=== PATIENT | male | born 2000 | race Caucasian/White ===

== ENCOUNTER 2024-09-27 14:33 | Emergency (ER) | payer OTHER ==
[~2024-09-27] VITALS: Ht 190.5 cm; Wt 90.1 kg
[2024-09-27] MEDS: IBUPROFEN 600 MG TAB PO ONE (17:45)
[2024-09-27 18:40] VITALS: BP 143/85; TEMP 96.3; O2SAT 100
== END 2024-09-27 18:44 | disposition home or self-care (01) ==
LOC: M ED 14:33
DX: M25.572 Pain in left ankle and joints of left foot (principal)

== ENCOUNTER 2025-01-03 03:44 | Emergency (ER) | payer OTHER ==
[~2025-01-03] VITALS: Ht 190.5 cm; Wt 93.3 kg
[2025-01-03] MEDS: IBUPROFEN 600 MG TAB PO ONE (06:49)
[2025-01-03 08:17] VITALS: BP 95/50; TEMP 97.3; O2SAT 99
== END 2025-01-03 08:19 | disposition home or self-care (01) ==
LOC: M ED 03:44 → EDBD 03:44 → M ED 08:19
DX: S02.2XXA Fracture of nasal bones, initial encounter for closed fracture (principal); Y92.9 Unspecified place or not applicable; Y93.9 Activity, unspecified; Y99.9 Unspecified external cause status; Y04.0XXA Assault by unarmed brawl or fight, initial encounter; F17.290 Nicotine dependence, other tobacco product, uncomplicated; F10.10 Alcohol abuse, uncomplicated

== ENCOUNTER 2025-01-04 03:08 | Emergency (ER) | payer OTHER ==
[~2025-01-04] VITALS: Ht 190.5 cm; Wt 86.3 kg
[2025-01-04 03:13] VITALS: BP 144/86; TEMP 97.5; O2SAT 99
== END 2025-01-04 03:55 | disposition left against medical advice (07) ==
LOC: M ED 03:08
DX: Z53.21 Procedure and treatment not carried out due to patient leaving prior to being seen by health care provider (principal)